=== PATIENT | male | born 1980 | race Caucasian/White ===

== ENCOUNTER 2021-07-12 04:29 | Emergency (ER) | payer OTHER ==
[~2021-07-12] VITALS: Ht 190.5 cm; Wt 93.9 kg
[2021-07-12 04:32] VITALS: BP 127/66
--- NOTE | 2021-07-12 04:39 | NUR ---
PT TAKEN TO BED 8
--- NOTE | 2021-07-12 04:40 | NUR ---
Dr. Brock examining patient.
[2021-07-12 04:52] VITALS: BP 132/72
--- NOTE | 2021-07-12 04:57 | NUR ---
PATIENT DC HOME STABLE ALL THE DC INSTRUCTION GAVE AND EXPLAIN VITALS SIGNS IN NORMAL LIMITS //DiCaprio RN
== END 2021-07-12 04:57 | disposition home or self-care (01) ==
LOC: MED 04:29
DX: S01.112A Laceration without foreign body of left eyelid and periocular area, initial encounter (principal); W01.0XXA Fall on same level from slipping, tripping and stumbling without subsequent striking against object, initial encounter; Y93.89 Activity, other specified; Y92.89 Other specified places as the place of occurrence of the external cause; Y99.8 Other external cause status
CPT/HCPCS: 99282